=== PATIENT | female | born 1930 | race Caucasian/White ===

== ENCOUNTER → 2016-08-07 | Outpatient (REF) | payer MEDICARE | LOC: M SFHCPLAZ 12:47 | PROVIDERS: ATTEND Dermatology | DX: D22.9 Melanocytic nevi, unspecified (principal) | CPT/HCPCS: 11100; 88305; G0463 ==

== ENCOUNTER → 2016-10-28 | Outpatient (REF) | payer MEDICARE | LOC: M LAB REF 16:15 | PROVIDERS: ATTEND Surgery | DX: D22.5 Melanocytic nevi of trunk (principal) ==